=== PATIENT | female | born 1955 | race Caucasian/White ===

== ENCOUNTER 2017-04-20 17:23 | Inpatient (IN) | payer OTHER, MEDICARE ==
[~2017-04-20] VITALS: Ht 149.9 cm; Wt 58.5 kg
[~2017-04-20 17:23] MED LIST: FOLIC ACID1 M1 PO; METHADONE HCL5 MG PO; NICORELIEF2 MG PO; NICOTINE PATCH1 EAC3 TOP; ONE DAILY MULT1 EAC2 PO; QUETIAPINE FUM100 M1 PO; SEROQUEL50 M1 PO; VITAMIN B-1100 MG PO; WELLBUTRIN SR100 M2 PO; WELLBUTRIN SR200 M2 PO; WELLBUTRIN XL150 M2 PO
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
[2017-04-20 18:10] VITALS: BP 121/82
[2017-04-20 18:11] LABS: ABSOLUTE BASOPHIL COUNT 0 /CUMM (0.0-0.2); ABSOLUTE EOSINOPHIL COUNT 0.2 /CUMM (0.0-0.7); ABSOLUTE GRANULOCYTE CT 3.6 /CUMM (1.4-6.5); ABSOLUTE LYMPH COUNT 4.1 /CUMM (1.2-3.4); ABSOLUTE MONOCYTE COUNT 0.5 /CUMM (0.10-0.60); BASOPHIL % 0.5 % (0.0-2.0); GRANULOCYTE % 43.4 % (42.2-75.2); HEMATOCRIT 38.2 % (37-47); MEAN CORPUSCULAR HGB 29.1 PG (27.0-31.0); MEAN CORPUSCULAR HGB CONC 33.4 G/DL (33.0-37.0); MEAN CORPUSCULAR VOLUME 87.2 FL (81.0-99.0); MEAN PLATELET VOLUME 8.8 FL (7.4-10.4); PLATELET COUNT 314 /CUMM (130-400); RBC DISTRIBUTION WIDTH 20.9 % (11.5-14.5); RED BLOOD CELL CT 4.38 /CUMM (4.20-5.40); WHITE BLOOD CELL COUNT 8.4 /CUMM (4.8-10.8)
[2017-04-20 22:02] VITALS: BP 109/55
[2017-04-21] MEDS ORDERED: BACTRIM DS TAB1 EACH PO (07:14)
[2017-04-21] MEDS ORDERED: PYRIDIUM100 M1 PO (07:27)
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
[2017-04-21 16:20] VITALS: BP 112/68
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
[2017-04-21 18:20] VITALS: BP 122/71
[2017-04-21 20:30] VITALS: BP 115/70
[2017-04-21 20:54] VITALS: BP 122/66
[2017-04-21 20:55] VITALS: BP 122/66
[2017-04-21 22:35] VITALS: BP 109/71
[2017-04-22] VITALS (8 sets, daily range): BP systolic 114–135; BP diastolic 59–79
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
--- NOTE | 2017-04-22 17:31 | SOCIAL WORKER PROG NOTE PSYCH ---
Social Work Progress Note Progress Note 4:25pm This singer songwriter met with patient. She was very sedated which she attributed to her medications. Patient struggled to remain awake during this meeting and requested to meet tomorrow. Patient expressed interest in a referral to [facility].
[2017-04-23 08:10] VITALS: BP 117/74
[2017-04-23 08:16] VITALS: BP 117/74
[2017-04-23 11:47] VITALS: BP 101/67
[2017-04-23 11:51] VITALS: BP 101/67
--- NOTE | 2017-04-23 14:19 | SOCIAL WORKER PROG NOTE PSYCH ---
See Addendum Social Work Progress Note Progress Note 10:25am This keno writer / runner met with patient. She presented as tearful and depressed. She discussed feeling fearful about not knowing "where my life is going." Patient expressed concern about the doctor decreasing her Methadone and will discuss it with him later today. She expressed interest in pursuing outpatient treatment upon discharge baljit Cow[facility]. Patient stated that she is still tired from her medication and requested to continue this conversation another time.
--- NOTE | 2017-04-23 14:25 | CP SOUTH PROGRESS NOTE PSYCH ---
Psych (Inpt) Progress Note Progress Note Include the following elements, when applicable: Involvement in the active treatment of the patient with behavioral observations of the patient and the patient's response to the treatment. Review of the ongoing treatment process in the context of the treatment plan. Indication of how multi-disciplinary staff members are carrying out the treatment plan. Plans for future interventions and recommendations for revision of the treatment plan. Liaison with other physicians/providers. Progress Note: Case and treatment plan discussed in team meeting. Appeared sedated/lethargic yesterday. Reported SI this morning. Stated she would refuse group attendance until she talks with me. Patient seen at 10:42 a.m. with medical student. States she doesn't remember me. Feels "the same." Endorses that she feels maybe a little more awake. I explained rationale for methadone taper (which she is upset about). Definitely appears more awake and alert today than yesterday. Affect is irritable. Mood is "the same." Sad 10+/10. Patient left interview prematurely, claiming that I don't care about her. IMPRESSION: Slow progress. Continue present treatment plan. Housing remains problematic. Patient is on a methadone taper down by 5 mg/day because of dirty urine/unit policy. She reportedly called [employer] to complain about the taper. She called hospital security about the taper. We will advise her that she can also speak with the patient advocate.
--- NOTE | 2017-04-23 15:30 | IP INCIDENTAL NOTE PSYCH ---
Incidental Note Notation: Case d/w with [employer] Data Management Specialist, Dr. Jamila Molina.
[2017-04-23 15:55] VITALS: BP 119/75
[2017-04-23 15:56] VITALS: BP 119/75
[2017-04-24] VITALS (8 sets, daily range): BP systolic 99–127; BP diastolic 59–72
--- NOTE | 2017-04-24 13:07 | CP SOUTH PROGRESS NOTE PSYCH ---
Psych (Inpt) Progress Note Progress Note Include the following elements, when applicable: Involvement in the active treatment of the patient with behavioral observations of the patient and the patient's response to the treatment. Review of the ongoing treatment process in the context of the treatment plan. Indication of how multi-disciplinary staff members are carrying out the treatment plan. Plans for future interventions and recommendations for revision of the treatment plan. Liaison with other physicians/providers. Progress Note: Chart reviewed and progress discussed with nursing staff. Interviewed patient this morning. The patient was extremely agitated and perseverative regarding her methadone dosing. I again explained our departmental policy to taper methadone in the event of patient's using both methadone and illicit substances, and also explained to her that this is for her safety. She became quite agitated, exclaiming that no one here is trying to help her, and that "this isn' t right to do to somebody so depressed ". She denied any active suicidal ideation or homicidal ideation as well as denied any perceptual disturbances. The interview had to be ended abruptly due to the patient's degree of agitation. Vitals were reviewed and were within normal limits. No new laboratory results today. Mental status exam: Ananya is a marginally groomed female who appears much older than stated age with poor dentition wearing hospital pajamas. She is holding the back of her neck where she reports a small wound. Her gait is stable. She demonstrates no psychomotor agitation or retardation or tremulousness. Her speech is loud, pressured, otherwise within normal limits. Her mood is "horribly depressed ", her affect is irritable and labile. Her thought processes perseverative, her thought content is focused essentially solely around methadone dosing. She denies any suicidal or homicidal ideation today. She denies any perceptual disturbances. Her cognition is grossly alert and oriented. Her insight and judgment is markedly limited. Assessment and plan: At this time Ananya is unable to participate in any meaningful therapeutic processes due to perseveration around methadone dosing. She continues to require hospitalization due to her poor mood and substance use concerns. Will continue present management as per primary team.
[2017-04-25] VITALS (8 sets, daily range): BP systolic 98–119; BP diastolic 56–72
--- NOTE | 2017-04-25 13:05 | CP SOUTH PROGRESS NOTE PSYCH ---
Psych (Inpt) Progress Note Progress Note Include the following elements, when applicable: Involvement in the active treatment of the patient with behavioral observations of the patient and the patient's response to the treatment. Review of the ongoing treatment process in the context of the treatment plan. Indication of how multi-disciplinary staff members are carrying out the treatment plan. Plans for future interventions and recommendations for revision of the treatment plan. Liaison with other physicians/providers. Progress Note: Chart reviewed and progress discussed with nursing staff. Interviewed patient this morning. While she was again perseverative regarding methadone, she was today much more engageable in interview. More open about her concerns about her housing and related anxieties. Eventually conversation circled back to methadone, but this represented a substantial improvement over yesterday's interview. She reports "I'm really depressed ", however denies suicidal or homicidal ideation. She did say she slept well last night. She denied any other current concerns. Vitals were reviewed and were within normal limits. No new laboratory results today. Mental status exam: Ananya is a marginally groomed female who appears much older than stated age with poor dentition wearing hospital pajaSPD Control Systemss. Her gait is stable. She demonstrates no psychomotor agitation or retardation or tremulousness. She is tearful. Her speech today is wnl. Her mood is "really depressed", her affect is mildly irritable and labile. Her thought processes perseverative, her thought content focused again around methadone dosing. She denies any suicidal or homicidal ideation today. She denies any perceptual disturbances. Her cognition is grossly alert and oriented. Her insight and judgment is markedly limited. Assessment and plan: Subtle improvement in her willingness to explore psychosocial factors in her life though remains perseverative regarding methadone dosing. Her mood remains poor and she remains quite anxious about housing prospects. Will continue present management as per primary team.
[2017-04-26] VITALS (8 sets, daily range): BP systolic 113–125; BP diastolic 53–70
--- NOTE | 2017-04-26 13:56 | CP SOUTH PROGRESS NOTE PSYCH ---
Psych (Inpt) Progress Note Progress Note Include the following elements, when applicable: Involvement in the active treatment of the patient with behavioral observations of the patient and the patient's response to the treatment. Review of the ongoing treatment process in the context of the treatment plan. Indication of how multi-disciplinary staff members are carrying out the treatment plan. Plans for future interventions and recommendations for revision of the treatment plan. Liaison with other physicians/providers. Progress Note: Dr. Nice's notes reviewed. Medication list reviewed. Case discussed with nurse, who reports that the patient remains upset about methadone taper. Patient seen at 10:36 AM. Appears awake and alert. States she is rolling with the punches. States she is not fond of what is happening with the methadone. States she will be suicidal if homeless and out there on the street. Hopes to go [facility] and then to a sober house. Affect is euthymic. Patient is able to hold a conversation today. States mood is procrastinating to get in the shower, depressed. Rates sad mood 9/10 and anxiety 0/10. Feels hopeless but not helpless. Feels worthless sometimes. Feels guilty. Reports suicidal ideation but gives a safety promise for here. Denies homicidal ideation. Denies auditory and visual hallucinations. Reports that she gets paranoid when she is drinking when in the community, stating that she is a target. Denies paranoia now. States she is sleeping well with Seroquel. Regarding appetite, states she has put on weight, so she guesses her appetite is good. Tolerating current medications. States she had headaches from Wellbutrin in the past so she stopped it. Does not want an antidepressant. She requests Seroquel 25 mg q.h.s. p.r.n. in addition to current 100 mg q.h.s. standing. Does not want trazodone, so I will discontinue it. IMPRESSION: Slow progress. Continue present treatment plan.
[2017-04-27] VITALS (8 sets, daily range): BP systolic 125–140; BP diastolic 64–75
--- NOTE | 2017-04-27 13:37 | CP SOUTH PROGRESS NOTE PSYCH ---
Psych (Inpt) Progress Note Progress Note Include the following elements, when applicable: Involvement in the active treatment of the patient with behavioral observations of the patient and the patient's response to the treatment. Review of the ongoing treatment process in the context of the treatment plan. Indication of how multi-disciplinary staff members are carrying out the treatment plan. Plans for future interventions and recommendations for revision of the treatment plan. Liaison with other physicians/providers. Progress Note: Case and treatment plan discussed in team meeting. Staff reports that the patient is doing well. Application to [facility] is pending. Patient seen this morning. States she feels really sad and scared. Wants to leave because she is afraid of detoxing. States she could stay with friends or go to an overflow fdc. Wants to leave tomorrow. Affect is calm and blunted to euthymic. Rates sad mood and anxiety both 8/10. Denies feeling hopeless, helpless or worthless. Does feel guilty. Denies suicidal and homicidal ideation. Denies auditory and visual hallucinations. Denies paranoia now but indicates that she does have paranoia "only when using." Reports she had middle of the night awakenings 2 to use the bathroom. Describes appetite as good and energy is okay. Tolerating medications well, without complaint. Does not want an antidepressant. IMPRESSION: Slow progress. Continue present treatment plan. Anticipate discharge tomorrow.
--- NOTE | 2017-04-27 17:56 | SOCIAL WORKER PROG NOTE PSYCH ---
Social Work Progress Note Progress Note 11:05am This global technical writer met with patient. She stated that she contacted [facility] and is unable to return due to her drinking. She also informed this global technical writer that she has an appointment on 05/04/16 to complete an application at probation for an ATR which will provide payment for 2 months of rent at a sober home. This global technical writer suggested the [facility] in [place], however, patient is not interested due to the distance as she would like to remain in the [place] area. Patient described her mood as "scared and really depressed" due to the decrease in Methadone dose as well as "not knowing where I'll be [living]." Patient stated that she has a friend she could call to ask if she could stay with them temporarily if needed. She agreed to make this call today. Patient expressed interest in discharging tomorrow and plans to return to the [facility] to continue with the Methadone treatment.
[2017-04-28 07:35] VITALS: BP 133/60
[2017-04-28 07:55] VITALS: BP 133/60
[2017-04-28 12:25] VITALS: BP 116/53
--- NOTE | 2017-04-28 14:14 | CP SOUTH PROGRESS NOTE PSYCH ---
Psych (Inpt) Progress Note Progress Note Include the following elements, when applicable: Involvement in the active treatment of the patient with behavioral observations of the patient and the patient's response to the treatment. Review of the ongoing treatment process in the context of the treatment plan. Indication of how multi-disciplinary staff members are carrying out the treatment plan. Plans for future interventions and recommendations for revision of the treatment plan. Liaison with other physicians/providers. Progress Note: Case and treatment plan discussed in team meeting. Staff reports that the patient is denying suicidal ideation. Appearing calm. Reportedly [facility] will not take patient because she relapsed with alcohol while there in the past. [facility] has no beds. Patient seen at 12 noon. States she is discouraged because she cannot get into [facility]. She states that she drank at the [facility] and she had to leave. Reports she has to be discharged tomorrow because she is having difficulty with the taper in methadone. Affect is calm and blunted to euthymic. Reports mood is kind of sad because she does not have adequate clothing for this weather. Rates sad mood and anxiety both 10. Denies feeling hopeless, helpless or worthless. Does feel guilty. Reports suicidal ideation but states she will not act on it. Denies suicide intent and denies suicide plan. Denies auditory and visual hallucinations and paranoid ideation. Reports she had middle of the night awakening 1 but she got back to sleep. Describes appetite as good. Reports energy is okay but not where she wants it to be. Tolerating medications without side effects. Patient states that she picks at her skin. I explained that this could be an OCD variant that might respond to certain antidepressants. Nonetheless, she prefers Wellbutrin and would like to go back on it. Denies history of seizures or eating disorder. I warned her that there is an increased risk for seizure if she withdraws from alcohol while on Wellbutrin. We will now restart Wellbutrin SR 100 mg daily. I explained that Wellbutrin SR is unlikely to help with her skin picking. IMPRESSION: Slow progress. Continue present treatment plan. Anticipate discharge tomorrow.
--- NOTE | 2017-04-28 15:20 | SOCIAL WORKER PROG NOTE PSYCH ---
Social Work Progress Note Progress Note 9:12am This senior grant writer spoke with Giselle at [facility] regarding bed availability. She stated that they do not currently have any beds. 10:08am A referral and medication list was submitted to [facility] by fax ([phone]) 10:15am This senior grant writer spoke misael Vicky at [facility]. A screening was completed and Vicky stated that she would discuss the case with the team in determination of whether they will accept the patient into their program. 10:45am This senior grant writer met with patient. She stated that she does not want to discharge today due to "I have no place to go." Patient stated that she would call a friend who she may be able to stay with, [facility] and [facility]. She expressed interest in meeting with Nikunj Ying at [facility]. This senior grant writer relayed this to Nikunj at 10:57am and is waiting for a response. Patient described her mood as "depressed". She denied SI/HI/AH/VH. 2:30pm Patient requested that she and this senior grant writer contact [facility] to inquire about bed availablity (despite being informed that this senior grant writer had been told that they do not have any available beds at this time). Mehrdad answered the call and confirmed that they do not have any available beds and recommended that this senior grant writer and/or the patient follow up tomorrow.
[2017-04-28 15:40] VITALS: BP 127/58
[2017-04-28 19:50] VITALS: BP 130/82
[2017-04-29 07:40] VITALS: BP 133/93
[2017-04-29 11:58] VITALS: BP 111/56
--- NOTE | 2017-04-29 14:23 | CP SOUTH PROGRESS NOTE PSYCH ---
Psych (Inpt) Progress Note Progress Note Include the following elements, when applicable: Involvement in the active treatment of the patient with behavioral observations of the patient and the patient's response to the treatment. Review of the ongoing treatment process in the context of the treatment plan. Indication of how multi-disciplinary staff members are carrying out the treatment plan. Plans for future interventions and recommendations for revision of the treatment plan. Liaison with other physicians/providers. Progress Note: Case and treatment plan discussed in team meeting. Staff reports that the patient is doing fine on the unit. Patient seen at 12:12 pm. Eager to go to [facility] if [facility]. Cannot stay with the friend she had hoped to stay with, because friend is having surgery. Patient states she will leave tomorrow no matter what because she doesn't want further taper down of methadone. She disclosed that she is on probation. Perhaps earth science technical officer can help with placement. Affect is calm and blunted to euthymic. Mood is angry with me (she said with laughter) because of the methadone taper. Sad ~8/10. Anxiety 8/10. Denies feeling hopeless, helpless or worthless. Does feel guilty. Denies SI, HI, AH, VH and PI. Sleep: had a few MNAs and then felt anxious. Appetite: good. Energy: low. Tolerating medications, including addition of Wellbutrin, well. IMPRESSION: Slow progress. Continue present treatment plan. Placement remains problematic.
[2017-04-29 15:43] VITALS: BP 141/81
--- NOTE | 2017-04-29 16:30 | SOCIAL WORKER PROG NOTE PSYCH ---
Social Work Progress Note Progress Note 9:10am This fha underwriter spoke with Mehrdad at [facility] regarding the referral. She stated that she has not yet reviewed the referral and would contact this fha underwriter once she has done so. 11:45am Patient stated that she spoke with Mehrdad and requested that this fha underwriter call her. This fha underwriter followed up with Mehrdad Neves at [facility], who stated that she has not yet reviewed the referral. 12:30pm Nikunj Ying from [facility] met with the patient and this fha underwriter. He will explore resources for clothing. Alternate housing options were also discussed, to include warming shelters. The patient agreed to call 211 to inquire about a list of warming shelters. Patient stated that she will contact her weapons officer regarding sober housing and did not need a list from this fha underwriter. Patient was agreeable to signing an BETH for her weapons officer. Patient stated that she might speak with her brother about combining funds to rent an apartment. She was agreeable to maintaining contact with Nikunj Ying upon discharge and confirmed that she has his phone number. 2:52pm This fha underwriter left a vm for the patient's weapons officer, Shirley Aggarwal at [facility] ([phone], ext. [phone]) requesting a call back and provided a call back number. This fha underwriter met with patient who described her mood as "a little sad." She denied SI/HI/AH/VH. She was informed of the vm left for her PO. She stated that she plans on going to the [facility] for IOP and Methadone treatment following discharge from [facility]. Patient stated that she called her bank to inquire about a check she has been waiting for and learned that it had not yet been deposited. Upon her inquiry, this fha underwriter informed the patient that [facility] has not yet contacted her and reminded her that they stated they would be in contact upon reviewing the referral.
[2017-04-29 20:00] VITALS: BP 142/79
[2017-04-30 07:29] VITALS: BP 132/73
--- NOTE | 2017-04-30 11:57 | CP SOUTH PROGRESS NOTE PSYCH ---
Psych (Inpt) Progress Note Progress Note Include the following elements, when applicable: Involvement in the active treatment of the patient with behavioral observations of the patient and the patient's response to the treatment. Review of the ongoing treatment process in the context of the treatment plan. Indication of how multi-disciplinary staff members are carrying out the treatment plan. Plans for future interventions and recommendations for revision of the treatment plan. Liaison with other physicians/providers. Progress Note: Case and treatment plan discussed in team meeting. Patient has expressed ambivalence about whether she is going today. Has been attending groups. Patient seen at 10:34 AM. She is concerned that a peer on the unit may have the flu. Patient feels aggravated; states she has been on working on her discharge since Wednesday. Rates depressed mood about 8/10 and anxiety about 8/10. Affect is full range. Denies feeling hopeless or helpless. Does feel worthless today. Feels guilty. Denies suicidal and homicidal ideation. Denies auditory and visual hallucinations. Denies paranoid ideation. She is unhappy with me vis-- vis methadone taper. Reports middle of the night awakening. Appetite is okay. Energy is [id number]. Tolerating medications well. Feels she will be ready for discharge if she has a place to go. Feels safe for discharge. IMPRESSION: Patient remains ambivalent about discharge. Methadone taper continues. Patient is on Wellbutrin for depression.
[2017-04-30 12:05] VITALS: BP 100/66
--- NOTE | 2017-04-30 15:21 | Patient Discharge Instructions ---
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 Homeless. Abusing alcohol. Off medications due to insurance issues. Psy Discharge Primary Diag+ Major depr, rec, severe Psy Discharge Secondary Diag+ Alcohol use disorder Cannabis use disorder Opioid use d/o on MMP Rule out PTSD UTI (treated) COPD Summary Tests/Major Procedures Sodium 148 H TSHR 1.640 WNL Serum EtOH 130.0 H Urine drug screen +methadone, cannabis Urinalysis 04/20/17: cloudy, RBC 3-5, WBC 50-75, crystals 1+ ca ox, bact many, epi's few, hemoglobin trace-intact, nitrite pos, esterase large. Urine negative. Chol 226 H (01/30/17) HDL 70 H (01/30/17) Hemoglobin A1c 5.3 WNL (01/30/17) EKG 04/21/17: sinus bradycardia @ 48, slower rate since previous tracing, otherwise normal EKG, QT 472, QTc 422. Studies Pending at [place]: None. Patient Instructions Contact Information Your Psychiatrist on [facility] was Cesar Riojas MD * If you are experiencing an emergency related to this hospitalization, please call [phone] to contact the treating psychiatrist or the psychiatrist-on- call. * To Request a copy of your medical records, please contact the Medical Records Department at [phone]. * To request results of studies pending at the time of discharge, please call [phone]. * Continue your Medications until directed to stop by your Healthcare provider. General Medication Information Please continue to take your new medications and your continued home medications , unless otherwise indicated on your discharge medication list, or unless directed by your MD or ENERGY EFFICIENT SITE MANAGER to stop them. Special Instructions Diet Regular Activity Normal Other Inst/Recommendations Stay away from drugs & alcohol.See PCPfor med. problems &abnl labs/slow HR. - Tobacco Use Treatment Offered Post DC Medications Offered: Script Given-See Med List Post DC Tobacco Treatment Plan: Ant Tobacco Tx Pgm Program Appt Date: 05/12/17 Program Appt Time: 1600 - EtOH/Drug Use D/O Treatment Offered Post DC Medications Offered: Script Given-See Med List (On MMP through APT.) Post DC EtOH/SubAbuse TX Plan: Other SubAbuse/Dual Pgm (APT [facility]) Program Appt Date: 05/01/17 Program Appt Time: 0900 Metabolic Screening () Not Applicable, patient not on a neuroleptic. OR () Patient on a neuroleptic(s) . Enter below results for Hemoglobin A1C, and lipid panel if obtained during the last 365 days. BMI: 26.000 Blood Pressure: 100/66 Laboratory Results From [facility] (If applicable): See labs above. Advance Directives Does the Patient have Medical Advance Directives No/Per pt req info given Does Pt have Psychiatric Advance Directives? No/Refused further info Does Patient have a Designated Surrogate Decision Maker: No Information About Psychiatric Advance Directives Provided? Refused Discharge Plan Post Hospital Treatment Plan: Staying with a friend. Follow up at [facility] for MMP.
[2017-04-30 15:26] VITALS: BP 114/76
[2017-04-30] MEDS ORDERED: WELLBUTRIN SR100 M2 PO (15:30)
[2017-04-30] MEDS ORDERED: QUETIAPINE FUM100 M1 PO (15:30)
[2017-04-30] MEDS ORDERED: NICORELIEF2 MG PO (15:30)
[2017-04-30] MEDS ORDERED: ONE DAILY MULT1 EAC2 PO (15:30)
[2017-04-30] MEDS ORDERED: NICOTINE PATCH1 EAC3 TOP (15:30)
--- NOTE | 2017-04-30 15:31 | SOCIAL WORKER PROG NOTE PSYCH ---
Social Work Progress Note Progress Note 10:11am This va underwriter spoke with Mehrdad at [facility] [place]. She states that the patient does not currently have a "solid discharge plan" and would need one in order to start their program. She stated that she spoke with the patient who will call her with the contact information for ATR so Mehrdad can follow up with them. Mehrdad stated that she would contact this va underwriter regarding any updates with the referral. 12:55pm This va underwriter met with patient. She called Mehrdad at [facility] during this meeting (the call was not on speaker phone due to phone difficulties). Ananya stated, during this call, that she plans to return to the [facility] for Methadone maintenance as well as IOP. Patient stated that she spoke with her minesweeping officer this morning regarding treatment and discharge plan. Patient stated that Mehrdad would be in contact regarding any progress with this referral; she requested that Mehrdad contact this va underwriter. 2:06pm This va underwriter spoke with Pattie Hall, firearms assembly supervisor at the [facility] on [facility], by phone ([phone]). Pattie confirmed that the patient may return to their program and could engage in their IOP by asking to speak with an IOP clinician when she presents during the walk-in hours. Pattie provided the APT fax number: [phone] 3pm Patient informed this va underwriter that she has identified a close friend (Cornelius Rodriguez ) she can stay with who is sober. She identified this as "a safe place." She signed a release for Cornelius Michael, and this va underwriter and patient called him together ([phone]). He stated that he knows her well, is aware that she has been in the hospital and that she is welcome to stay with him as of today and/or when she is discharged. He was informed that she will continue to seek more permanent housing and will also return to the [facility] for outpatient treatment. Cornelius provided his address ([address] [place] [address]). Patient stated that she would like to discharge today and feels comfortable with the plan to stay with [facility]. She will follow up with [facility] as well as [facility] in [place]. She states that she has phone numbers to both. She denied SI/HI/AH/VH and identified a safety plan of "I would call 911" if she feels she is in crisis. She was also informed that she would be provided with crisis numbers and warm line numbers upon discharge. Patient was agreeable to returning to the [facility] tomorrow for Methadone treatment and will also ask to speak with an IOP clinician while she is there on 05/01/17 in order to engage in their IOP. Patient was also informed of the referral to the smoking cessation group on May 12, 2017 at 4pm. This va underwriter reviewed with Dr. Riojas and patient will be discharged. A [facility] will be scheduled through [facility] to provide transportation from to [facility]. [facility] that [facility] in [place]. 3:20pm A second attempt was made to contact Shirley Aggarwal at [facility] [facility] ([phone], ext. [phone]). A vm was left with a call back number. 3:28pm This va underwriter called the [facility] and spoke with Michelle who was transferred to [place] ( Chapo RN) regarding Methadone dose. 3:53pm This va underwriter spoke with Nikunj at [facility] ([phone]) who stated that the patient's [employer] insurance is inactive and a ride could not be scheduled. This va underwriter informed the patient who stated that she would take the bus to [address] [place] [address]. 4:34pm After discussing with Dr. Riojas, this va underwriter contacted [facility] ([phone]) and spoke with Ruben who stated that the patient's medications would be covered by insurance and she would be able to pick them up tonight. This message was relayed to the patient. Faxed Referral(s) Referred To: [facility] Transition of Care Documents sent: Health Summary Faxed to: [facility] Fax #: [phone] Faxed by: Misael Leiva LCSW Date faxed: 04/30/17 Time Faxed: [phone]
--- NOTE | 2017-04-30 15:45 | DISCHARGE SUMMARY REPORT-PSYCH ---
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 Off medications due to insurance issues. Psy Discharge Primary Diag: Major depr, rec, severe Psy Discharge Secondary Diag: Alcohol use disorder Cannabis use disorder Opioid use d/o on MMP Rule out PTSD UTI (treated) COPD Hospital Course Significant Lab Findings: Sodium 148 H TSHR 1.640 WNL Serum EtOH 130.0 H Urine drug screen +methadone, cannabis Urinalysis 04/20/17: cloudy, RBC 3-5, WBC 50-75, crystals 1+ ca ox, bact many, epi's few, hemoglobin trace-intact, nitrite pos, esterase large. Urine negative. Chol 226 H (01/30/17) HDL 70 H (01/30/17) Hemoglobin A1c 5.3 WNL (01/30/17) EKG 04/21/17: sinus bradycardia @ 48, slower rate since previous tracing, otherwise normal EKG, QT 472, QTc 422. Course Complications: None. Consultations: Patient was seen for admission H&P by Dr. Bryan Guzman. He noted: "Impression/Plan: #Depression/Suicidal Ideation- chronic recurrent problem. Plan: Admitted to [facility]/Psychiatry for full evaluation and treatment. #Alcohol Dependence/Opioid Dependence- patient slightly sedated due to Ativan. Housestaff and consult appreciated. Plan: Continue Methadone and follow. Taper Methadone as per Psychiatry. #Pyuria/Dysuria- ? UTI. Urinalysis positive. Plan: Agree with course of Bactrim DS and Pyridium prn pending urine culture. #COPD- lungs clear at present and asymptomatic. Plan: Will follow and use MDI's prn. #Superficial Abrasion- posterior neck. Was seen by landscape supervisor. Plan: Agree with bacitracin and daily dressing changes. Watch for infection." Allergies: Coded Allergies: NO KNOWN ALLERGIES (NONE 04/21/17) Hospital Course/TX Response: The patient was monitored on the unit for safety, alcohol withdrawal and mood disorder. A major stressor was homelessness. The patient was put on a standing Ativan taper + prn Ativan based on CIWA. She was too sedated on this protocol, so Ativan was changed to CIWA triggered only. Methadone was tapered down by 5 mg/day because of dirty urine upon presentation. Mood and affect have improved, although the patient has been very unhappy with the methadone taper. Suicidal ideation has remitted. Progress note from date of discharge, 04/30/17: Case and treatment plan discussed in team meeting. Patient has expressed ambivalence about whether she is going today. Has been attending groups. Patient seen at 10:34 AM. She is concerned that a peer on the unit may have the flu. Patient feels aggravated; states she has been on working on her discharge since Wednesday. Rates depressed mood about 810 and anxiety about 810. Affect is full range. Denies feeling hopeless or helpless. Does feel worthless today. Feels guilty. Denies suicidal and homicidal ideation. Denies auditory and visual hallucinations. Denies paranoid ideation. She is unhappy with me vis-- vis methadone taper. Reports middle of the night awakening. Appetite is okay. Energy is limr-uli-dira. Tolerating medications well. Feels she will be ready for discharge if she has a place to go. Feels safe for discharge. IMPRESSION: Patient remains ambivalent about discharge. Methadone taper continues. Patient is on Wellbutrin for depression. Discharge HBIPS - Tobacco Use Treatment Offered Post DC Medications Offered: Script Given-See Med List Post DC Tobacco Treatment Plan: Ant Tobacco Tx Pgm Program Appt Date: 05/12/17 Program Appt Time: 1600 - EtOH/Drug Use D/O Treatment Offered Post DC Medications Offered: Script Given-See Med List (On MMP through APT.) Post DC EtOH/SubAbuse TX Plan: Other SubAbuse/Dual Pgm ([facility]) Program Appt Date: 05/01/17 ([facility]) Program Appt Time: 0900 (APT 5 am - 3 pm) Metabolic Screening - Screen if on a Neuroleptic Medication - Metabolic screening should include: - Blood Pressure, BMI, Glucose or Hgb A1c, & a - Lipid profile from within the past 365 days. Metabolic Screening () Not Applicable, patient not on a neuroleptic. OR () Patient on a neuroleptic(s) . Enter below results for Hemoglobin A1C, and lipid panel if obtained during the last 365 days. BMI: 26.000 Blood Pressure: 114/76 Laboratory Results From [facility] (If applicable): [x] Lab Cholesterol 226 MG/DL H 09/30/17 1217 Cholesterol/HDL Ratio 3 % 01/30/17 1217 HDL Cholesterol 70 mg/dL H 01/30/17 1217 Hemoglobin A1c 5.3 % 01/30/17 1217 LDL Cholesterol, Calc 127 mg/dL 01/30/17 1217 Triglycerides 147 mg/dL 01/30/17 1217 Discharge Instructions General Discharge Information Multiple Neuroleptics: ([x]) Not Applicable OR Document below three failed attempts at monotherapy, or a plan to taper to monotherapy, or augmentation of Clozapine. () Discharge Diet Regular Discharge Activity Normal DC Disposition: Homeless. Will be staying with a friend. Referrals Ordered Referrals Provider Referral 05/01/17 For Groups: [[facility]] [facility] [address] [place] [address] Patient to utilize walk in hours (daily from 5am-3pm; please note that [facility] is closed on 05/02/17). Patient to speak with an IOP clinician in order to engage in their IOP when she presents during walk in hours. Provider Referral 05/12/17 For Groups: [[facility]] [facility] [address], [place] [phone] Next Group: Friday, May 12, 2017 at 4pm Prescriptions Stop taking the following medications: Folic Acid (Folic Acid) 1 MG TABLET ORAL DAILY Qty = 14 Thiamine HCl (Vitamin B-1) 100 MG TABLET ORAL DAILY Qty = 14 Bupropion HCl (Wellbutrin Sr) 100 MG TABLET.ER ORAL DAILY Qty = 30 Continue taking these medications: Methadone HCl (Methadone HCl) 5 MG TABLET 30 Milligram ORAL DAILY Comments: Last Taken:04/30/17 Time:07 Nicotine (Nicotine Patch) 21 MG/24 HOUR PATCH.TD24 1 PATCH On the skin DAILY as needed for nicotine craving Qty = 14 This prescription has been renewed Quetiapine Fumarate (Quetiapine Fumarate) 100 MG TABLET 1 Tablet ORAL AT BEDTIME Qty = 14 This prescription has been renewed Multivitamin (One Daily Multivitamin) 1 EACH TABLET 1 Tablet ORAL DAILY Qty = 14 This prescription has been renewed Start taking the following new medications: Nicotine (Nicorelief) 2 MG GUM 2 Milligram ORAL EVERY 2 HOURS NEEDED as needed for smoking cessation Qty = 50 No Refills Bupropion HCl (Wellbutrin Sr) 100 MG TABLET.ER 100 Milligram ORAL DAILY @8 AM Qty = 14 No Refills Other Inst/Recommendations Stay away from drugs & alcohol.See PCPfor med. problems &abnl labs/slow H Copies To: Dr. Jamila Molina
== END 2017-04-30 17:05 | DRG 885 ==
LOC: ERH 17:23 → ERHI 04-21 16:54 → CP SOUTH 04-21 16:54 → ENRESERVTM 04-21 18:14 → ENTRNSPT 04-21 20:33 → CMPTRNSPT 04-21 20:49 → CP SOUTH 04-21 20:49 → ENRESERV 04-21 23:59 → CP SOUTH 04-22 18:32
PROVIDERS: Emergency Medicine
DX: F33.2 Major depressive disorder, recurrent severe without psychotic features (principal); F11.90 Opioid use, unspecified, uncomplicated; N39.0 Urinary tract infection, site not specified; F12.90 Cannabis use, unspecified, uncomplicated; F43.10 Post-traumatic stress disorder, unspecified; J44.9 Chronic obstructive pulmonary disease, unspecified; Z72.89 Other problems related to lifestyle
CPT/HCPCS: 80307; 81001; 81025; 93005; 93010; G0463; G0480; J3490